=== PATIENT | male | born 1980 | race Caucasian/White ===

== ENCOUNTER 2023-04-06 17:48 | Emergency (ER) | payer SELFPAY ==
[2023-04-06] MEDS ORDERED: Meclizine 25 MG Tab PO ONE (19:14)
[2023-04-06 19:17] LABS: APPEARANCE,URINE CLEAR; BILIRUBIN,URINE NEGATIVE (NEGATIVE); COLOR,URINE YELLOW; GLUCOSE,URINE >=1000 mg/dL (NEGATIVE); KETONES,URINE TRACE mg/dL (NEGATIVE); LEUKOCYTE ESTERASE,URINE NEGATIVE (NEGATIVE); NITRITE,URINE NEGATIVE (NEGATIVE); OCCULT BLOOD,URINE NEGATIVE (NEGATIVE); PROTEIN,URINE NEGATIVE (NEGATIVE); UROBILINOGEN,URINE 0.2 EU/dL (<2.0)
[2023-04-06] MEDS ORDERED: Insulin Regular, Human 100 Units/ML 10 ML Vial SUBCUT ONE (19:27)
[2023-04-06 19:34] LABS: HEMATOCRIT 50.5 % (38.0-50.0); HEMOGLOBIN 18.7 g/dL (13.0-17.0); MEAN CORPUSCULAR HEMOGLOBIN 33.2 pg (27.0-32.0); MEAN CORPUSCULAR VOLUME 89.5 fL (80.0-98.0); PLATELET COUNT,PLT 170 K/uL (150-400); RED BLOOD CELL COUNT 5.64 M/uL (4.50-5.90); WHITE BLOOD CELL COUNT,WBC 7.22 K/uL (4.0-11.0)
[2023-04-06] MEDS: Labetalol 100 MG/20 ML MDV IVPUSH ONE ×2 (19:56→20:21)
[2023-04-06 20:00] LABS: LACTIC ACID 1.5 mmol/L (0.4-2.0)
[2023-04-06 20:01] LABS: EOSINOPHILS ABSOLUTE MAN 0.1 (0.0-0.7); EOSINOPHILS PERCENT MAN 2 % (0.0-7.0); LYMPHOCYTES ABSOLUTE MAN 1.9 (0.6-2.4); LYMPHOCYTES PERCENT MAN 26 % (16.0-40.0); MONOCYTES ABSOLUTE MAN 0.7 (0.0-0.8); MONOCYTES PERCENT MAN 10 % (0.0-15.0); SEG NEUTROPHILS ABSOLUTE MAN 4.5 (1.4-5.7); SEG NEUTROPHILS PERCENT MAN 62 % (48.0-80.0)
[2023-04-06 20:06] LABS: A/G RATIO 0.9 (0.9-1.6); CALCIUM 9.3 mg/dL (8.5-10.1); CARBON DIOXIDE,CO2 29.7 mmol/L (21.0-32.0); CREATININE 1.2 mg/dL (0.8-1.3); EST CRCL DRUG DOSING (CG) 94.19 mL/min; MAGNESIUM 1.7 mg/dL (1.8-2.4); PROTEIN TOTAL,TP 8.3 g/dL (6.4-8.2); TSH ULTRASENSITIVE 6.03 uIU/mL (0.36-3.74)
[2023-04-06 20:32] LABS: T4 FREE 0.87 ng/dL (0.76-1.46)
[2023-04-06 20:59] VITALS: BP 163/102; PULSE 78
== END 2023-04-06 20:58 | disposition home or self-care (01) ==
LOC: MW.ED 17:48
DX: I10 Essential (primary) hypertension (principal); R73.9 Hyperglycemia, unspecified
CPT/HCPCS: 36415; 70450; 80053; 81003; 82947; 83605; 83735; 84439; 84443; 84484; 85025; 96374; 99285; A9270; J1815; J3490; 93010; 99284